=== PATIENT | male | born 1985 | race Two or more races ===

== ENCOUNTER 2022-07-14 03:23 | Emergency (ER) | payer MEDICAID ==
[~2022-07-14] VITALS: Ht 185.4 cm; Wt 95.3 kg
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
[2022-07-14] MEDS ORDERED: KETOROLAC TROMETHAMINE 60 MG INJ IM ONE ×2 (04:23→04:30)
--- NOTE | 2022-07-14 04:25 | NUR ---
Called Radiology to pick-up the pt to CT.
--- NOTE | 2022-07-14 04:27 | NUR ---
TORADOL 60MG IM TO RIGHT DELTOID.
--- NOTE | 2022-07-14 04:31 | NUR ---
pt p/u by Radiology personnel.
[2022-07-14] MEDS ORDERED: NAPR-1164 PO (05:11)
[2022-07-14 05:21] VITALS: BP 109/77
== END 2022-07-14 05:22 | disposition home or self-care (01) ==
LOC: ER 04:10
DX: S02.69XA Fracture of mandible of other specified site, initial encounter for closed fracture (principal); Y09 Assault by unspecified means; Y92.89 Other specified places as the place of occurrence of the external cause; F10.129 Alcohol abuse with intoxication, unspecified; S00.83XA Contusion of other part of head, initial encounter
CPT/HCPCS: 99285; 70450; 70486; 96372; J1885; A4663